=== PATIENT | male | born 1940 | race Caucasian/White ===

== ENCOUNTER 2017-12-15 18:39 | Emergency (ER) | payer OTHER, BC ==
[~2017-12-15] VITALS: Ht 177.8 cm; Wt 66.1 kg
[~2017-12-15 18:39] MED LIST: ANTIVERT25 MG PO; EPZICOM1 TABLET PO; FLOMAX0.4 MG PO; LIPITOR20 MG PO; NORCO 5/3251 TABLET PO; TIROSINT100 MCG PO; TIVICAY50 MG PO
[2017-12-15 19:20] LABS: APPEARANCE CLEAR ((CLEAR)); BILIRUBIN NEGATIVE; BLOOD LARGE; COLOR YELLOW ((YELLOW)); GLUCOSE (STRIP) NEGATIVE; KETONES 5; LEUKOCYTES NEGATIVE; NITRITE NEGATIVE; PROTEIN (STRIP) 30; SPECIFIC GRAVITY 1.016 (1.000-1.030); UROBILINOGEN 0.2 MG/DL (0.2-1.0)
[2017-12-15 19:25] LABS: HEMATOCRIT 42.3 % (38.0-50.0); HEMOGLOBIN 15.5 G/DL (12.5-16.6); MCH 35.1 PG (29.0-34.0); MCHC 36.6 G/DL (30.0-36.0); MCV 95.9 FL (86-99); PLATELET COUNT 239 K/uL (156-360); RBC DIS.WIDTH-CV 12.1 % (11.8-14.6); RBC DIS.WIDTH-SD 42.4 % (39-53); RED BLOOD COUNT 4.41 M/uL (4.00-5.50); WHITE BLOOD COUNT 11.2 K/uL (4.1-10.2)
[2017-12-15 19:31] LABS: BACTERIA RARE /HPF; EPITHELIAL CELLS NONE SEEN /HPF; MUCUS TRACE /LPF; RED BLOOD CELLS TNTC /HPF (0-5); UCUL ADDED? YES; WHITE BLOOD CELLS 0-5 /HPF (0-5)
[2017-12-15 19:39] LABS: ALBUMIN 4.5 g/dL (3.2-4.8)
[2017-12-15 19:40] LABS: CHLORIDE 104 mEq/L (99-109); SODIUM 137 mEq/L (136-147)
[2017-12-15 19:42] LABS: GLUCOSE 123 mg/dL (70-99); TOTAL PROTEIN 7.3 g/dL (6.4-8.3)
[2017-12-15 19:44] LABS: TOTAL BILIRUBIN 0.8 mg/dL (0.0-1.0)
[2017-12-15 19:45] LABS: ALKALINE PHOSPHATASE 71 IU/L (3-129)
[2017-12-15 19:46] LABS: CREATININE 1.4 mg/dL (0.6-1.3); GFR ESTIMATE (CALCULATED) 53 mL/min/ (58.99-99999)
[2017-12-15 19:47] LABS: AST (GOT) 31 IU/L (2-34); UREA NITROGEN (BUN) 20 mg/dL (9-23)
[2017-12-15 19:49] LABS: ALT (GPT) 29 IU/L (3-49)
[2017-12-15] MEDS ORDERED: ZOFRAN ODT4 MG PO (23:08)
[2017-12-15] MEDS ORDERED: PERCOCET 5/31 TABLET PO (23:08)
[2017-12-15 23:45] VITALS: BP 146/74
[2017-12-19] MEDS ORDERED: TRIUMEQ TABLET1 EACH PO (12:08)
[2017-12-19] MEDS ORDERED: NORVASC5 MG PO (12:09)
== END 2017-12-16 00:23 | disposition home or self-care (01) ==
LOC: EME 18:39
DX: N13.2 Hydronephrosis with renal and ureteral calculous obstruction (principal); E78.5 Hyperlipidemia, unspecified; I10 Essential (primary) hypertension; E03.9 Hypothyroidism, unspecified; Z87.891 Personal history of nicotine dependence
CPT/HCPCS: 74176; 80053; 81003; 85027; 87086; 99281; 99285; J2270; J2405; J7030

== ENCOUNTER 2017-12-20 05:26 | Day surgery (SDC) | payer OTHER, BC ==
[~2017-12-20] VITALS: Ht 177.8 cm; Wt 68.0 kg
[~2017-12-20 05:26] MED LIST changes: +NORVASC5 MG PO; +PERCOCET 5/31 TABLET PO; +TRIUMEQ TABLET1 EACH PO; +ZOFRAN ODT4 MG PO
[2017-12-20 06:36] VITALS: BP 145/68
[2017-12-20 10:11] VITALS: BP 135/65
[2017-12-20 10:48] VITALS: BP 144/65
== END 2017-12-20 11:00 | disposition home or self-care (01) ==
LOC: SDC 05:26
PROC: 0TJ98ZZ Inspection of Ureter, Via Natural or Artificial Opening Endoscopic (ICD-10-PCS; principal; 2017-12-20)
PROC: 0T768DZ Dilation of Right Ureter with Intraluminal Device, Via Natural or Artificial Opening Endoscopic (ICD-10-PCS; principal; 2017-12-20)
DX: N13.5 Crossing vessel and stricture of ureter without hydronephrosis (principal)
CPT/HCPCS: 74420; 93005; C1769; C1876; J0690; J1100; J2405; J3010